=== PATIENT | female | born 1995 | race Caucasian/White ===

== ENCOUNTER 2017-12-06 11:44 | Day surgery (SDC) | payer BC ==
[2017-12-06] VITALS (12 sets, daily range): BP systolic 109–130; BP diastolic 67–82
[~2017-12-06] VITALS: Ht 157.5 cm; Wt 74.6 kg
[~2017-12-06 11:44] MED LIST: Cefazolin 2GM/50ML dext iso,osmotic IVPB IV ONE; famotidine 20mg tablet PO ONE; hydrALAZINE 20mg/ml inj. IV PRN; labetalol 20mg/4ml (5mg/ml) syringe IV PRN; meperidine/PF 25mg/ml syringe IV PRN; morphine 4 MG/ML inj SYRINge IV PRN; ondansetron/PF 4mg/2ml inj IV PRN; ringers solution, lacted 1,000 ML IV SCH
[2017-12-06] MEDS ORDERED: LIDOcaine 1% (10mg/ml) 2ml vial ONE (12:53)
[2017-12-06 13:06] LABS: BASOPHILS % (AUTO) 0.3 % (0-1); EOSINOPHILS # (AUTO) 0.2 X10'3 (0-0.9); EOSINOPHILS % (AUTO) 2.9 % (0-6); HEMATOCRIT 39.6 % (35.0-45.0); HEMOGLOBIN 13.5 g/dl (12.0-16.0); LYMPHOCYTES # (AUTO) 2.2 X10'3 (1.1-4.8); LYMPHOCYTES % (AUTO) 31.1 % (21-51); MEAN CORPUSCULAR HEMOGLOBIN 28.7 PG (27.0-31.0); MEAN CORPUSCULAR VOLUME 84.3 FL (78-98); MEAN PLATELET VOLUME 10.4 FL (7.4-10.4); MONOCYTES # (AUTO) 0.4 X10'3 (0-0.9); MONOCYTES % (AUTO) 6.1 % (2-12); NEUTROPHILS # (AUTO) 4.2 X10'3 (1.8-7.7); NEUTROPHILS % (AUTO) 59.6 % (42-75); PLATELET COUNT 254 X10'3 (140-440); RED CELL DISTRIBUTION WIDTH 13.1 % (11.5-14.5)
[2017-12-06 13:10] LABS: ALANINE AMINOTRANSFERASE 24 U/L (12-78); ALBUMIN 3.8 G/DL (3.4-5.0); ALBUMIN/GLOBULIN RATIO 1.1 (1.1-1.5); ALKALINE PHOSPHATASE 122 IU/L (46-116); ANION GAP 6 (8-16); ASPARTATE AMINO TRANSFERASE 15 U/L (10-37); BILIRUBIN,TOTAL 0.4 MG/DL (0.1-1.0); BLOOD UREA NITROGEN 9 MG/DL (7-18); BUN/CREATININE RATIO 12.5 (6.6-38.0); CALCIUM 9.2 MG/DL (8.5-10.1); CHLORIDE 104 MMOL/L (99-107); CREATININE 0.72 MG/DL (0.40-0.90); GLUCOSE 96 MG/DL (70-104); POTASSIUM 4.1 MMOL/L (3.5-5.1); SODIUM 139 MMOL/L (135-145); TOTAL CARBON DIOXIDE 28.8 MMOL/L (24-32); TOTAL PROTEIN 7.2 G/DL (6.4-8.2); eGFR > 90 ML/MIN
[2017-12-06 13:26] LABS: HCG SERUM QL NEGATIVE
[2017-12-06] MEDS ORDERED: rocuronium 10mg/ml inj IV ONE (14:21)
[2017-12-06] MEDS ORDERED: dexamethasone sod phosphate 10mg/ml inj ONE (14:21)
[2017-12-06] MEDS ORDERED: glycopyrrolate 0.2mg/ml inj ONE ×2 (14:21→15:12)
[2017-12-06] MEDS ORDERED: sevoflurane 250ml liquid IH ONE (14:21)
[2017-12-06] MEDS ORDERED: neostigmine methylsulfate 1 MG/ML 10ml vial ONE (14:21)
[2017-12-06] MEDS ORDERED: propofol 10mg/ml 20ml vial IV ONE (14:21)
[2017-12-06] MEDS ORDERED: ondansetron/PF 4mg/2ml inj ONE ×2 (14:21→14:32)
[2017-12-06] MEDS ORDERED: fentaNYL/PF 50MCG/1 ML 2ML syringe ONE ×2 (14:25)
[2017-12-06] MEDS ORDERED: LIDOcaine 2% (20mg/ml) 5ml vial ONE (14:31)
[2017-12-06] MEDS ORDERED: propofol inj 20 ML IV ONE (14:31)
[2017-12-06] MEDS ORDERED: dexamethasone sod phosphate 4mg/ml inj. ONE (14:32)
[2017-12-06 15:14] LABS: LARGE PLATELETS FEW; PLATELET ESTIMATE NORMAL
[2017-12-06] MEDS ORDERED: BUPIVAcaine/PF 2.5mg/ml (0.25%) 10ml vial ONE (15:24)
[2017-12-06] MEDS ORDERED: BUPIVAcaine 2.5mg/ml inj 50ml vial (contains preservative) SQ ONE (15:26)
[2017-12-06] MEDS: meperidine/PF 25mg/ml syringe IV PRN ×2 (16:02→16:34)
== END 2017-12-06 17:15 | disposition home or self-care (01) ==
LOC: PAS 11:44
PROVIDERS: ATTEND Surgery
DX: K80.10 Calculus of gallbladder with chronic cholecystitis without obstruction (principal); F10.120 Alcohol abuse with intoxication, uncomplicated; Z98.890 Other specified postprocedural states
CPT/HCPCS: 36415; 47562; 80053; 84703; 85025; A6251; J0690; J1100; J2175; J2405; J2704; J2710; J3010; J3490; J7120; A7000; J2001

== ENCOUNTER 2018-12-11 11:57 | Emergency (ER) | payer BC, OTHER ==
[~2018-12-11] VITALS: Ht 152.4 cm; Wt 70.5 kg
[2018-12-11] MEDS ORDERED: normal saline 1000ML IV soln IV ONE (13:00)
[2018-12-11 13:12] LABS: BASOPHILS % (AUTO) 0.2 % (0-1); EOSINOPHILS # (AUTO) 0.1 X10'3 (0-0.9); EOSINOPHILS % (AUTO) 1.9 % (0-6); HEMATOCRIT 41.9 % (35.0-45.0); HEMOGLOBIN 14.2 g/dl (12.0-16.0); LYMPHOCYTES # (AUTO) 0.9 X10'3 (1.1-4.8); MEAN CORPUSCULAR HEMOGLOBIN 29.3 PG (27.0-31.0); MEAN CORPUSCULAR VOLUME 86.3 FL (78-98); MEAN PLATELET VOLUME 10.3 FL (7.4-10.4); MONOCYTES # (AUTO) 0.4 X10'3 (0-0.9); MONOCYTES % (AUTO) 6.3 % (2-12); NEUTROPHILS # (AUTO) 4.7 X10'3 (1.8-7.7); NEUTROPHILS % (AUTO) 76.6 % (42-75); PLATELET COUNT 200 X10'3 (140-440); RED BLOOD COUNT 4.85 X10'6 (4.20-5.60); RED CELL DISTRIBUTION WIDTH 13.1 % (11.5-14.5); WHITE BLOOD COUNT 6.1 X10'3 (4.5-11.0)
[2018-12-11 13:27] LABS: ALANINE AMINOTRANSFERASE 21 U/L (12-78); ALBUMIN 3.2 G/DL (3.4-5.0); ALBUMIN/GLOBULIN RATIO 0.8 (1.1-1.5); ALKALINE PHOSPHATASE 87 IU/L (46-116); ANION GAP 10 (8-16); ASPARTATE AMINO TRANSFERASE 17 U/L (10-37); BILIRUBIN,TOTAL 0.4 MG/DL (0.1-1.0); BLOOD UREA NITROGEN 10 MG/DL (7-18); BUN/CREATININE RATIO 12.8 (6.6-38.0); CALCIUM 8.3 MG/DL (8.5-10.1); CHLORIDE 105 MMOL/L (99-107); CREATININE 0.78 MG/DL (0.40-0.90); GLUCOSE 114 MG/DL (70-104); LIPASE 105 U/L (73-393); POTASSIUM 3.4 MMOL/L (3.5-5.1); SODIUM 140 MMOL/L (135-145); TOTAL CARBON DIOXIDE 25.2 MMOL/L (24-32); TOTAL PROTEIN 7.1 G/DL (6.4-8.2); eGFR 90 ML/MIN
[2018-12-11] MEDS ORDERED: ONDA4TAB6 PO (14:29)
[2018-12-11 14:33] LABS: CLARITY,URINE CLOUDY (Clear); COLOR,URINE YELLOW (Yellow); GLUCOSE, URINE NEGATIVE (Neg); KETONES,URINE NEGATIVE (Neg); LEUKOCYTE ESTERASE ,URINE NEGATIVE (Neg); NITRITES, URINE NEGATIVE (Neg); OCCULT BLOOD,URINE NEGATIVE (Neg); PH,URINE 5.5 (4.8-8.0); PROTEIN,URINE 30 mg/dl (Neg); UROBILINOGEN,URINE 0.2 E.U/dL (0.2-1.0)
[2018-12-11 14:36] LABS: UA COLLECTION TYPE OTHER
[2018-12-11 14:39] LABS: BACTERIA,URINE 2+ /HPF (Neg); MUCUS STRANDS MODERATE /LPF (Neg); SQUAMOUS EPITHELIAL CELL,UR MANY /LPF (FEW)
[2018-12-11 14:40] LABS: RBC,URINE 0-2 /HPF (0-2)
[2018-12-11 14:48] VITALS: BP 115/80
[2018-12-11 17:01] LABS: URINE HCG NEGATIVE (NEG)
== END 2018-12-11 14:51 | disposition home or self-care (01) ==
LOC: ER 11:57
DX: T62.8X1A Toxic effect of other specified noxious substances eaten as food, accidental (unintentional), initial encounter (principal); K52.9 Noninfective gastroenteritis and colitis, unspecified; F10.99 Alcohol use, unspecified with unspecified alcohol-induced disorder; Z79.899 Other long term (current) drug therapy; Y90.9 Presence of alcohol in blood, level not specified; Y92.89 Other specified places as the place of occurrence of the external cause
CPT/HCPCS: 36415; 80053; 81001; 81025; 83605; 83690; 84145; 85025; 87040; 87045; 87046; 89055; 99283; J7030; J7040; 96360